=== PATIENT | male | born 1950 | race Caucasian/White ===

== ENCOUNTER 2017-05-11 08:41 | Observation (INO) | payer MEDICARE, OTHER ==
[2015-09-11 08:47] VITALS: BMI 25.0
[2017-05-11] MEDS ORDERED: Lactated Ringer's 1,000 ML IV ONE ×3 (10:18→13:00)
[2017-05-11] MEDS ORDERED: Propofol 10 mg/ml Inj (20 ML) ONE (11:06)
[2017-05-11] MEDS ORDERED: Midazolam 2 MG/2 ML VIAL ONE (11:06)
[2017-05-11] MEDS ORDERED: ceFAZolin IV 1 gm in Dextrose 1 GM/50 ML BAG IVPB ONE (11:09)
[2017-05-11] MEDS ORDERED: Rocuronium 10 mg/ml (5 ml) ONE (11:09)
[2017-05-11] MEDS ORDERED: Bupivacaine HCl 0.25% PF (10 ml) Inj ONE ×2 (11:37→11:38)
[2017-05-11] MEDS ORDERED: Neostigmine Methylsulfate 3mg/3ml Syringe IV ONE (11:40)
[2017-05-11] MEDS: HYDROmorphone 0.5 mg/0.5 ml ISec IVP PRN ×2 (12:00→12:48)
--- NOTE | 2017-05-11 13:07 | OP ---
PROCEDURE DATE: 05/11/2017 PREOPERATIVE DIAGNOSES: Right inguinal hernia and umbilical hernia. POSTOPERATIVE DIAGNOSES: Right inguinal hernia and umbilical hernia. PROCEDURES PERFORMED: 1. Right inguinal hernia repair. 2. Umbilical hernia repair. SURGEON: Patrice Kelly MD DUTY OFFICER: Dr. Batista ANESTHESIA: General. ESTIMATED BLOOD LOSS: 35 mL. POSTOPERATIVE CONDITION: Stable. INDICATIONS FOR SURGERY: This is a 67-year-old male who presents with a large right inguinal hernia along with an umbilical hernia and will undergo elective repair of both. GROSS FINDINGS: There was an incarcerated direct inguinal hernia associated with a cord lipoma. A d irect Edith-type repair was performed on the umbilical hernia sac. The umbilical hernia was also rep aired directly with Prolene. PROCEDURE: The patient taken to the operating room. General anesthesia administered and the abdomen was prepped and draped. A standard right inguinal incision was made and the external oblique aponeu rosis was opened. The spermatic cord was looped with a Aravind drain and a large cord lipoma on the cord was removed. There was some bleeding noted from the spermatic artery which was repaired. The d irect hernia sac was identified and a direct Edith-type repair was performed using a running 2-0 Prol rosalinda suture. The wound was irrigated with saline. The wound was closed in layers, and an adjacent ti ssue transfer closure was performed to close the space. Attention was then turned to the umbili fatimah hernia. A supraumbilical incision was made. The hernia sac was immediately encountered, dissect ed free to the base of the umbilical hernia and transected leaving an umbilical hernia defect. The d efect was repaired using interrupted 2-0 Prolene suture. The wounds were irrigated with saline and, again, an adjacent tissue transfer closure was performed to close and utilize the space. The devin grigsby tolerated procedure well, returned to recovery room in stable condition. Patrice Kelly MD cc: [id number] TT: 05/11/2017 13:06:29 agustina
[2017-05-11] MEDS: Oxycodone/Acetaminophen 5/325 mg Tab PO PRN (13:52)
--- NOTE | 2017-05-11 20:31 | CP.PCM.HP ---
History of Present Illness - History of Present Illness History of Present Illness: 67 year old male with a past medical history of HTN, cataracts, DM, anxiety, GERD, BPH presents today s/p right inguinal and umbilical hernia repair done y Dr. Kelly. Dr. Paniagua was asked to admit due to urinary retention post surgery. He has not been able to void since the surgery. Per nursing at 5:10PM he was straight cathed and 350cc of urine was obtained. He currently admits to mild pain in his abdomen over his surgical incision sites. He has no other complaints. PMHX - HTN, cataracts, DM, anxiety, GERD, BPH Meds - metformin 500mg PO BID, terazosin 2mg PO HS, Levocetirizine dihydrochloride 5mg PO daily. Dutasteride 0.5mg PO daily, ASA 81 mg PO daily, Amlodipine-benzapril 5-20mg PO daily Allergies - NKDA Surg - R ingiuinal hernia repair and umbilical hernia repair (Dr. Kelly 05/11) , colonoscopy/endoscopy Fam hx - non contributory Social - denies drug tobacco or alcohol use. Used to work in a [employer] PMD - Dr. Paniagua Present on Admission - Present on Admission Any Indicators Present on Admission: No Review of Systems - Constitutional Constitutional: absent: Chills, Fever - EENT Eyes: absent: Blurred Vision, Change in Vision - Cardiovascular Cardiovascular: absent: Chest Pain, Chest Pain at Rest, Palpitations, Pedal Edema, Syncope - Respiratory Respiratory: absent: Cough, Dyspnea, Dyspnea on Exertion - Gastrointestinal Gastrointestinal: Abdominal Pain. absent: Constipation, Diarrhea, Nausea, Vomiting - Genitourinary Genitourinary: Difficulty Urinating - Neurological Neurological: absent: Numbness, Tingling, Weakness Past Patient History - Past Medical History & Family History Past Medical History?: Yes - Past Social History Smoking Status: Never Smoked - CARDIAC Hx Hypertension: Yes - PULMONARY Hx Respiratory Disorders: No - NEUROLOGICAL Hx Neurological Disorder: No - HEENT Hx HEENT Problems: Yes Hx Cataracts: Yes - RENAL Hx Chronic Kidney Disease: Yes (HX HYDRONEPHROSIS IN [facility]) - ENDOCRINE/METABOLIC Hx Endocrine Disorders: Yes Hx Diabetes Mellitus Type 2: Yes - HEMATOLOGICAL/ONCOLOGICAL Hx Blood Disorders: No - INTEGUMENTARY Hx Dermatological Problems: No - MUSCULOSKELETAL/RHEUMATOLOGICAL Hx Musculoskeletal Disorders: No - GASTROINTESTINAL Hx Gastrointestinal Disorders: No Hx Fatty Liver Disease: Yes (IN [facility]) Hx Gastritis: Yes Hx Gastroesophageal Reflux: Yes Other/Comment: inguinal and umbilical hernia - GENITOURINARY/GYNECOLOGICAL Hx Genitourinary Disorders: Yes Hx Prostate Problems: Yes - PSYCHIATRIC Hx Psychophysiologic Disorder: Yes Hx Anxiety: Yes - SURGICAL HISTORY Hx Surgeries: No Hx Cataract Extraction: Yes (BILATERAL) - ANESTHESIA Hx Anesthesia: Yes Hx Anesthesia Reactions: No Hx Malignant Hyperthermia: No Has any member of the family had a problem w/ anesthesia?: No Meds Allergies/Adverse Reactions: Allergies Allergy/AdvReac Type Severity Reaction Status Date / Time No Known Allergies Allergy Verified 09/13/15 09:27 Physical Exam - Constitutional Appears: Non-toxic, No Acute Distress - Head Exam Head Exam: ATRAUMATIC, NORMAL INSPECTION - Eye Exam Eye Exam: EOMI, PERRL Pupil Exam: NORMAL ACCOMODATION - ENT Exam ENT Exam: Mucous Membranes Moist - Respiratory Exam Respiratory Exam: Clear to Auscultation Bilateral, NORMAL BREATHING PATTERN. absent: Accessory Muscle Use, Rales, Rhonchi, Wheezes - Cardiovascular Exam Cardiovascular Exam: REGULAR RHYTHM, +S1, +S2 - GI/Abdominal Exam GI & Abdominal Exam: Normal Bowel Sounds, Soft, Tenderness. absent: Distended, Firm, Guarding - Extremities Exam Extremities exam: Positive for: normal inspection. Negative for: calf tenderness, pedal edema - Back Exam Back exam: NORMAL INSPECTION. absent: CVA tenderness (L), CVA tenderness (R), paraspinal tenderness - Neurological Exam Neurological exam: Alert, CN II-XII Intact, Oriented x3 - Psychiatric Exam Psychiatric exam: Normal Affect, Normal Mood - Skin Skin Exam: Dry, Intact, Normal Color, Warm Results - Vital Signs Recent Vital Signs: Last Vital Signs Temp 97.6 F 05/11/17 17:30 Pulse 68 05/11/17 17:30 Resp 15 05/11/17 17:30 BP 120/70 05/11/17 17:30 Pulse Ox 96 05/11/17 17:30 - Labs Labs: Laboratory Results - last 24 hr 05/11/17 09:18 POC Glucose (mg/dL) 121 H Assessment & Plan - Assessment and Plan (Free Text) Assessment: Urinary Retention frequent bladder scans and will straight cath as indicated consider urology consult if no sign of improvement S/p Hernia repair Consistent carb diet SCDS zofran prn Percocet 5/325 prn pain Q6 hours Diabetes monitor blood sugar Metformin 500mg PO BID BPH terazosin 2mg PO HS Dutasteride 0.5mg PO daily HTN controlled will monitor Amlodipine-benzapril 5-20mg PO daily Prophylactic Measures SCDs Protnix 40mg PO daily ASA 81 mg PO daily
[2017-05-12 01:11] VITALS: RESP 20; TEMP 97.9
[2017-05-12 07:43] LABS: BASO % 0.4 % (0.0-2.0); EOS # 0.3 K/uL (0.0-0.7); EOS % 2.6 % (0.0-4.0); HEMATOCRIT 41.3 % (35.0-51.0); LYMPH # 1.7 K/uL (1.0-4.3); LYMPH % 16.6 % (20.0-40.0); MEAN CELL VOLUME 82.9 fL (80.0-94.0); MEAN CORPUSCULAR HEMOGLOBIN 28.8 pg (27.0-31.0); MEAN CORPUSCULAR HGB CONC 34.8 g/dL (33.0-37.0); MEAN PLATELET VOLUME 7.7 fL (7.2-11.7); MONO # 0.8 K/uL (0.0-0.8); MONO % 7.9 % (0.0-10.0); NRBC % 0.1 % (0.0-2.0); RED CELL DISTRIBUTION WIDTH 13.3 % (11.5-14.5); WHITE BLOOD COUNT 10.3 K/uL (4.8-10.8)
[2017-05-12 08:05] VITALS: O2SAT 92
[2017-05-12 08:07] LABS: CHLORIDE 101 mmol/L (98-107)
[2017-05-12 08:08] LABS: SODIUM 138 mmol/L (132-148)
[2017-05-12 08:10] LABS: ALB/GLOB RATIO 1.2 (1.0-2.1); ALKALINE PHOSPHATASE 71 U/L (38-126); AST/SGOT 21 U/L (17-59); BILIRUBIN,TOTAL 0.8 mg/dL (0.2-1.3); BLOOD UREA NITROGEN 15 mg/dL (9-20); CALCIUM 8.8 mg/dl (8.6-10.4); CARBON DIOXIDE 27 mmol/L (22-30); GFR AFRICAN-AMERICAN > 60; GLUCOSE,RANDOM 100 mg/dL (75-110); TOTAL PROTEIN 7.1 g/dL (6.3-8.3)
[2017-05-12 08:11] LABS: ALT/SGPT 22 U/L (21-72)
[2017-05-12] MEDS: Oxycodone/Acetaminophen 5/325 mg Tab PO PRN (08:46)
--- NOTE | 2017-05-12 09:23 | CP.PCM.PN ---
Subjective - Date & Time of Evaluation Date of Evaluation: 05/12/17 Time of Evaluation: 07:30 - Subjective Subjective: Patient was examined at bedside. Patient was not in acute distress. Patient stated that he urinated about 200ml this morning without pain. Patient complains of mild pain at surgical site. Patient complains of feeling bloated, states his last bowel movement was yesterday at 8am. He asked for medicine to relieve his constipation. Patient denies chest pain, shortness of breath, bleeding, headaches, nausea, vomiting, diarrhea. Objective - Vital Signs/Intake and Output Vital Signs (last 24 hours): Temp Pulse Resp BP Pulse Ox 97.9 F 83 20 103/65 92 L 05/12/17 08:04 05/12/17 08:04 05/12/17 08:04 05/12/17 08:04 05/12/17 08:04 Intake and Output: 05/12/17 05/12/17 06:59 18:59 Intake Total 3720 Output Total 1500 Balance 2220 - Medications Medications: Current Medications Amlodipine Besylate (Norvasc) 5 mg PO DAILY [facility] Aspirin (Ecotrin) 81 mg PO DAILY [facility] Docusate Sodium (Colace) 100 mg PO BID [facility] Enalapril Maleate (Vasotec) 10 mg PO DAILY [facility] Finasteride (Proscar) 5 mg PO DAILY [facility] Loratadine (Claritin) 10 mg PO DAILY [facility] Metformin HCl (Glucophage) 500 mg PO BID [facility] Ondansetron HCl (Zofran Inj) 4 mg IVP Q6H PRN PRN Reason: Nausea/Vomiting Oxycodone/Acetaminophen (Percocet 5/325 Mg Tab) 2 tab PO Q4H PRN PRN Reason: pain Stop: 05/14/17 13:31 Last Admin: 05/12/17 08:46 Dose: 2 tab Pantoprazole Sodium (Protonix Ec Tab) 40 mg PO DAILY [facility] Terazosin HCl (Hytrin) 2 mg PO HS [facility] Last Admin: 05/11/17 22:39 Dose: 2 mg - Labs Labs: 05/12/17 07:31 05/12/17 07:31 - Constitutional Appears: Well - Head Exam Head Exam: ATRAUMATIC, NORMAL INSPECTION, NORMOCEPHALIC - Eye Exam Eye Exam: EOMI, Normal appearance, PERRL - ENT Exam ENT Exam: Mucous Membranes Moist, Normal Exam - Neck Exam Neck Exam: Full ROM, Normal Inspection. absent: Lymphadenopathy - Respiratory Exam Respiratory Exam: Clear to Ausculation Bilateral, NORMAL BREATHING PATTERN - Cardiovascular Exam Cardiovascular Exam: REGULAR RHYTHM, +S1, +S2. absent: Murmur - GI/Abdominal Exam GI & Abdominal Exam: Soft, Normal Bowel Sounds Additional comments: gauze/bandages covering surgical site are clean/dry/intact - Rectal Exam Rectal Exam: Deferred - Exam Exam: NORMAL INSPECTION - Extremities Exam Extremities Exam: Full ROM, Normal Capillary Refill, Normal Inspection. absent : Joint Swelling, Pedal Edema - Neurological Exam Neurological Exam: Alert, Awake, CN II-XII Intact, Normal Gait, Oriented x3 - Psychiatric Exam Psychiatric exam: Normal Affect, Normal Mood - Skin Skin Exam: Dry, Intact, Normal Color, Warm
[2017-05-12] MEDS ORDERED: Pantoprazole 40 mg EC Tab PO SCH (10:00)
[2017-05-12 11:54] VITALS: BP 105/66
--- NOTE | 2017-05-12 13:45 | CP.PCM.DIS ---
Provider - Provider Date of Admission: 05/11/17 16:51 Attending physician: Vicente Paniagua Jr, MD Time Spent in preparation of Discharge (in minutes): 40 Diagnosis - Discharge Diagnosis (1) Postoperative urinary retention Status: Resolved Priority: Medium Hospital Course - Lab Results Lab Results: Most Recent Lab Values WBC 10.3 K/uL (4.8-10.8) 05/12/17 07:31 RBC 4.98 Mil/uL (4.40-5.90) 05/12/17 07:31 Hgb 14.3 g/dL (12.0-18.0) 05/12/17 07:31 Hct 41.3 % (35.0-51.0) 05/12/17 07:31 MCV 82.9 fL (80.0-94.0) 05/12/17 07:31 MCH 28.8 pg (27.0-31.0) 05/12/17 07:31 MCHC 34.8 g/dL (33.0-37.0) 05/12/17 07:31 RDW 13.3 % (11.5-14.5) 05/12/17 07:31 Plt Count 184 K/uL (130-400) 05/12/17 07:31 MPV 7.7 fL (7.2-11.7) 05/12/17 07:31 Neut % (Auto) 72.5 % (50.0-75.0) 05/12/17 07:31 Lymph % (Auto) 16.6 % (20.0-40.0) L 05/12/17 07:31 Early % (Auto) 7.9 % (0.0-10.0) 05/12/17 07:31 Eos % (Auto) 2.6 % (0.0-4.0) 05/12/17 07:31 Baso % (Auto) 0.4 % (0.0-2.0) 05/12/17 07:31 Neut # 7.5 K/uL (1.8-7.0) H 05/12/17 07:31 Lymph # 1.7 K/uL (1.0-4.3) 05/12/17 07:31 Early # 0.8 K/uL (0.0-0.8) 05/12/17 07:31 Eos # 0.3 K/uL (0.0-0.7) 05/12/17 07:31 Baso # 0.0 K/uL (0.0-0.2) 05/12/17 07:31 Sodium 138 mmol/L (132-148) 05/12/17 07:31 Potassium 4.0 mmol/L (3.6-5.2) 05/12/17 07:31 Chloride 101 mmol/L (98-107) 05/12/17 07:31 Carbon Dioxide 27 mmol/L (22-30) 05/12/17 07:31 Anion Gap 14 (10-20) 05/12/17 07:31 BUN 15 mg/dL (9-20) 05/12/17 07:31 Creatinine 1.2 MG/DL (0.8-1.5) 05/12/17 07:31 Est GFR ( Amer) > 60 05/12/17 07:31 Est GFR (Non-Af Amer) > 60 05/12/17 07:31 POC Glucose (mg/dL) 136 mg/dL (65-110) H 05/11/17 22:00 Random Glucose 100 mg/dL (75-110) 05/12/17 07:31 Calcium 8.8 mg/dl (8.6-10.4) 05/12/17 07:31 Total Bilirubin 0.8 mg/dL (0.2-1.3) 05/12/17 07:31 AST 21 U/L (17-59) 05/12/17 07:31 ALT 22 U/L (21-72) 05/12/17 07:31 Alkaline Phosphatase 71 U/L (38-126) 05/12/17 07:31 Total Protein 7.1 g/dL (6.3-8.3) 05/12/17 07:31 Albumin 3.9 g/dL (3.5-5.0) 05/12/17 07:31 Globulin 3.2 gm/dL (2.2-3.9) 05/12/17 07:31 Albumin/Globulin Ratio 1.2 (1.0-2.1) 05/12/17 07:31 - Hospital Course Hospital Course: HPI: 67 year old male with a past medical history of HTN, cataracts, DM, anxiety, GERD, BPH presents today s/p right inguinal and umbilical hernia repair done y Dr. Kelly. Dr. Paniagua was asked to admit due to urinary retention post surgery. He has not been able to void since the surgery. Per nursing at 5:10PM he was straight cathed and 350cc of urine was obtained. He currently admits to mild pain in his abdomen over his surgical incision sites. He has no other complaints. PMHX - HTN, cataracts, DM, anxiety, GERD, BPH Meds - metformin 500mg PO BID, terazosin 2mg PO HS, Levocetirizine dihydrochloride 5mg PO daily. Dutasteride 0.5mg PO daily, ASA 81 mg PO daily, Amlodipine-benzapril 5-20mg PO daily Allergies - NKDA Surg - R ingiuinal hernia repair and umbilical hernia repair (Dr. Kelly 05/11) , colonoscopy/endoscopy Fam hx - non contributory Social - denies drug tobacco or alcohol use. Used to work in a [employer] PMD - Dr. Paniagua Hospital course: Patient is s/p right inguinal and umbilical hernia repair done by Dr. Kelly on 05/11. He was admitted to the medicine service due to post operative urinary retention. He was straight cathed yesterday and 350cc of urine was obtained. Bladder scans every 3 hours were ordered. A bladder scan at 00:38 today showed 400+ mL. The patient was straight cathed again and 750ml of urine was obtained. This morning was urinating on his own without difficulty. CBC, CMP were ordered which were within normal limits. Dr Paniagua and Dr Kelly agreed the patient is stable to discharge. He was discharged on percocet 5/325 # 25 q4 PO prn for pain and colace 100mg PO BID #10 for constipation. Discharge Exam - Head Exam Head Exam: ATRAUMATIC, NORMAL INSPECTION, NORMOCEPHALIC - Eye Exam Eye Exam: EOMI, Normal appearance, PERRL Pupil Exam: NORMAL ACCOMODATION, PERRL - ENT Exam ENT Exam: Mucous Membranes Moist - Neck Exam Neck exam: Full Rom - Respiratory Exam Respiratory Exam: NORMAL BREATHING PATTERN. absent: Rales, Rhonchi, Wheezes, Respiratory Distress - Cardiovascular Exam Cardiovascular Exam: REGULAR RHYTHM, RRR, +S1, +S2 - GI/Abdominal Exam GI & Abdominal Exam: Normal Bowel Sounds, Soft, Tenderness - Rectal Exam Rectal Exam: Deferred - Exam Exam: NORMAL INSPECTION - Extremities Exam Extremities exam: full ROM - Neurological Exam Neurological exam: Alert, Normal Gait, Oriented x3 - Psychiatric Exam Psychiatric exam: Normal Affect, Normal Mood - Skin Skin Exam: Normal Color, Warm Discharge Plan - Discharge Medications Prescriptions: Docusate [Colace] 100 mg PO BID #10 cap - Follow Up Plan Condition: GOOD Disposition: HOME/ ROUTINE Additional Instructions: Patient is stable to discharge home. Patient is to resume home medications as usual. Patient is to fill out the prescriptions for the following medications and take as instructed: Colace 100mg BID PO for 5 day, for constipation Percocet 5/325mg PO q4 PRN #25, for pain Patient to follow up with Dr. Kelly on May 22, 2017. Dr. Kelly's number: [phone] Patient is to return to emergency department if symptoms return. These instructions were explained to the patient.
[2017-05-12] MEDS ORDERED: Pneumococcal 23-Valent Vaccine IM ONE (14:12)
[2017-05-12 16:53] VITALS: PULSE 77
== END 2017-05-12 15:30 | disposition home or self-care (01) ==
LOC: C.SDS 08:41 → C.5T 16:51
PROVIDERS: ADMIT Internal Medicine; ATTEND Internal Medicine
DX: K40.30 Unilateral inguinal hernia, with obstruction, without gangrene, not specified as recurrent (principal); K42.0 Umbilical hernia with obstruction, without gangrene; Z23 Encounter for immunization; R33.8 Other retention of urine
CPT/HCPCS: 36415; 49507; 49587; 80053; 82948; 85025; 88302; 90732; G0009; G0378; J0690; J1170; J2001; J2250; J2704; J2710; J3010; J7120